=== PATIENT | female | born 1970 | race Caucasian/White ===

== ENCOUNTER 2019-03-14 09:45 | Observation (INO) ==
[2019-03-14] MEDS ORDERED: *HR* HYDROmorphone (PF) 1 MG/ML SYRINGE IVP ONE (10:28)
[2019-03-14] MEDS ORDERED: Ondansetron 4 MG/2 ML VIAL IVP ONE (10:28)
--- NOTE | 2019-03-14 10:28 | Emergency Department Note ---
Disposition Clinical Impression: Cholecystitis Disposition: Admitted As Inpatient Condition: Fair Referrals: Belia Moreira CNP [Primary Care Provider] - Forms: ED Satisfaction Letter, Work/School Release Time of Disposition: 12:17 General Adult HPI - General Chief complaint: ED Abdominal Pain Stated complaint: ABD Pain Time Seen by Provider: 03/14/19 09:54 Source: patient Mode of arrival: ambulatory Limitations: no limitations Nursing Notes Reviewed: Yes Vital Signs Reviewed: Yes - History of Present Illness HPI Narrative: Patient is a 48-year-old female with a past medical history of PCO S, myotonic dystrophy type II hysteroscopy presents to the emergency for evaluation of "gallbladder pain "patient states that her pain began this morning around 3:00 AM describes it as a sharp stabbing pain that is a 10/10 in the right upper quadrant. Associated with nausea but no emesis. Denies any diarrhea or urinary symptoms. States that she is seen for similar pain 2 weeks ago and had a gallbladder which she was told she has tones and she was given follow up with Dr. Forbes. She also recently underwent a colonoscopy and endoscopy 2 days ago. Pain Scale: 10 - Related Data Previous Rx's Medication Instructions Recorded Hyoscyamine SL [Levsin SL] 0.125 mg SL TID PRN #12 tab.subl 03/03/19 Allergies Allergy/AdvReac Type Severity Reaction Status Date / Time terbutaline [From Brethine] AdvReac Difficulty Verified 03/03/19 14:08 Breathing All systems ED: reviewed and negative except as stated. Review of Systems: As Per HPI Constitutional: Denies: fever, chills Cardiovascular: Denies: chest pain, palpitations, dyspnea on exertion Respiratory: Denies: cough, dyspnea, wheezes Gastrointestinal: Reports: abdominal pain, nausea. Denies: vomiting, diarrhea Genitourinary: Denies: urgency, dysuria, frequency Musculoskeletal: Denies: back pain, neck pain Integumentary: Denies: rash Past Medical History - Past Medical History Attestation: Yes The following information was validated with the patient. Medical history: Reports: hypertension Psychiatric history: Reports: no psych history - Social History Smoking Status: Current every day smoker Smokeless Tobacco Status: No Alcohol use: Reports: none Drug use: Reports: none Physical Exam - General Limitations: no limitations General appearance: alert, in no apparent distress - Head Head exam: atraumatic, normocephalic - Eye Eye exam: Present: normal appearance, PERRL, EOMI - ENT ENT exam: normal exam, normal oropharynx, mucous membranes moist - Neck Neck exam: Present: normal inspection, full ROM, trachea midline - Chest Chest inspection: Present: normal inspection, symmetric chest wall rise - Respiratory Respiratory exam: Present: normal lung sounds bilaterally. Absent: respiratory distress, wheezes, accessory muscle use - Cardiovascular Cardiovascular exam: Present: regular rate, normal rhythm, normal heart sounds, +S1, +S2 - Abdominal Exam Abdominal exam: Present: soft, tenderness. Absent: distention, guarding, rebound, rigidity Abdominal tenderness: Present: RUQ - Extremities Exam Extremities exam: Present: normal inspection, full ROM, normal capillary refill. Absent: tenderness, pedal edema - Back Exam Back exam: Present: normal inspection, full ROM. Absent: tenderness - Neurological Exam Neurological exam: Present: alert, oriented X3 - Psychiatric Psychiatric exam: Present: normal affect, normal mood - Skin Skin exam: Present: warm, dry, intact, normal color Course Course Narrative: Patient is a 48 of female presents for right upper quadrant pain with a prior evaluation showing gallstones. She was seen this morning at an outside hospital which she states she had lab work done and was treated for pain and discharged home. She has right upper quadrant tenderness on exam. She does appear to be in significant discomfort. We will treat her pain and her nausea and she will undergo a CAT scan as well as gallbladder ultrasound that she has not had a CAT scan in the past and she also had the recent procedure performed 2 days ago patient agrees with that plan. - Reevaluation(s) Reevaluation #1: I discussed the patient's case with the surgeon on-call and she is seeing the patient at bedside to discuss possible admission for cholecystectomy. I discus sed her ultrasound and CT scan findings as well. Patient's pain is improved after the medication from earlier. Time: 12:01 Reevaluation #2: Patient to be admitted to the surgical services for cholecystectomy. Vital Signs Temperature 97.7 F 03/14/19 09:51 Pulse Rate 81 03/14/19 09:51 Respiratory Rate 18 03/14/19 09:51 Blood Pressure 168/78 03/14/19 09:51 O2 Sat by Pulse Oximetry 100 03/14/19 09:51 Temperature 97.7 F 03/14/19 09:53 Pulse Rate 66 03/14/19 11:35 Respiratory Rate 16 03/14/19 11:35 Blood Pressure 130/63 03/14/19 11:35 O2 Sat by Pulse Oximetry 100 03/14/19 11:35 Oxygen Delivery Oxygen Delivery Room Air Medical Decision Making - Medical Records Medical records reviewed: Yes I reviewed the patient's medical records. - Lab Data Lab results reviewed: Yes I reviewed the patient's lab results. Result diagrams: 03/14/19 10:08 03/14/19 10:08 Lab Results 03/14/19 03/14/19 03/14/19 Range/Units 10:08 10:08 11:37 WBC 8.0 (4.3-11.1) K/mcL RBC 3.71 L (3.82-4.97) M/mcL Hgb 12.1 (11.5-15.4) g/dL Hct 36.0 (35.3-44.9) % MCV 97.0 (83.0-100.0) fL MCH 32.6 (28.0-33.3) pg MCHC 33.6 (31.6-35.5) g/dL RDW 11.7 (11.5-14.5) % Plt Count 190 (140-400) K/mcL MPV 10.1 (9.4-12.4) fL Immature Gran % 0.2 (0-4) % Seg Neutrophils % 84.8 % Lymphocytes % 10.7 % Monocytes % 3.6 % Eosinophils % 0.5 % Basophils % 0.2 % Neutrophils # 6.8 (1.6-8.9) K/mcL Lymphocytes # 0.9 (0.6-4.6) K/mcL Monocytes # 0.3 (0.0-1.3) K/mcL Eosinophils # 0.0 (0.0-0.6) K/mcL Basophils # 0.0 (0.0-0.2) K/mcL Sodium 138 (136-145) mEq/L Potassium 3.6 (3.5-5.1) mEq/L Chloride 104 (98-107) mEq/L Carbon Dioxide 26 (23-29) mEq/L BUN 8 (6-20) mg/dL Creatinine 0.36 L (0.60-1.20) mg/dL Est GFR ( Amer) > 60 (> 60) Est GFR (Non-Af Amer) > 60 (> 60) BUN/Creatinine Ratio 22 (6-26) Glucose 127 H (70-105) mg/dL Calculated Osmolality 286 (280-300) Calcium 8.9 (8.6-10.3) mg/dL Total Bilirubin 0.2 L (0.3-1.0) mg/dL Direct Bilirubin 0.1 (0.0-0.2) mg/dL Indirect Bilirubin 0.1 (0.0-1.2) mg/dL AST 20 (13-39) Units/L ALT 18 (7-52) Units/L Alkaline Phosphatase 84 (34-104) Units/L Serum Total Protein 6.7 (6.4-8.9) g/dL Albumin 4.1 (3.5-5.7) g/dL Globulin 2.6 (2.4-3.5) g/dL Albumin/Globulin Ratio 1.6 (1.1-2.2) Lipase 7 L (11-82) Units/L Urine Color Yellow (Yellow) Urine Clarity Clear (Clear) Urine pH 6.0 (5.0-8.0) pH Units Ur Specific [place] 1.013 (1.010-1.025) Urine Protein Negative (Neg-Trace) mg/dL Urine Glucose (UA) Normal (Normal) mg/dL Urine Ketones Negative (Negative) mg/dL Urine Blood Trace H (Negative) Urine Nitrite Negative (Negative) Urine Bilirubin Negative (Negative) Urine Urobilinogen Normal (Normal) mg/dL Ur Leukocyte Esterase Negative (Negative) Urine Microscopic RBC 0-3 (0-3) per hpf Urine Microscopic WBC 0-3 (0-3) per hpf Ur Squamous Epith Cells Many H (None-Few) per lpf Urine Bacteria Few (None-Few) per hpf Hyaline Casts None Seen (None-Few) per lpf Ur Culture Indicated? YES A (NO) - Radiology Data Radiology results reviewed: Yes I reviewed the patient's radiology results. Abdomen CT 03/14/19 10:20 IMPRESSION: 1. CT findings are suspicious for acute calculus cholecystitis. 2. No biliary duct dilation. The common bile duct is normal caliber. 3. Mild periportal adenopathy, likely reactive. D/ / Chrystal Sousa MD / Chrysatl Sousa MD Interpreting Provider: Chrystal Sousa MD
[2019-03-14] MEDS ORDERED: Hyoscyamine 0.5 MG/ML MLS IVP ONE (10:29)
[2019-03-14 10:31] LABS: Basophils % 0.2 %; Eosinophils % 0.5 %; Hemoglobin 12.1 g/dL (11.5-15.4); Immature Granulocytes % 0.2 % (0-4); Lymphocytes # 0.9 K/mcL (0.6-4.6); Lymphocytes % 10.7 %; Mean Corpuscular HGB Conc 33.6 g/dL (31.6-35.5); Mean Corpuscular Hemoglobin 32.6 pg (28.0-33.3); Mean Platelet Volume 10.1 fL (9.4-12.4); Monocytes # 0.3 K/mcL (0.0-1.3); Monocytes % 3.6 %; Neutrophils # 6.8 K/mcL (1.6-8.9); Platelet Count 190 K/mcL (140-400); Red Blood Count 3.71 M/mcL (3.82-4.97); Red Cell Distribution Width 11.7 % (11.5-14.5); Segmented Neutrophils % 84.8 %
--- NOTE | 2019-03-14 10:33 | Emergency Department Note ---
Disposition Clinical Impression: Cholecystitis Disposition: Admitted As Inpatient Condition: Fair Referrals: Belia Moreira, MATHEMATICAL TECHNICIAN [Primary Care Provider] - Forms: ED Satisfaction Letter, Work/School Release Time of Disposition: 12:20 General Adult HPI - General Chief complaint: ED Abdominal Pain Stated complaint: ABD Pain Time Seen by Provider: 03/14/19 09:54 Source: patient Limitations: no limitations - History of Present Illness Pain Scale: 10 - Related Data Previous Rx's Medication Instructions Recorded Hyoscyamine SL [Levsin SL] 0.125 mg SL TID PRN #12 tab.subl 03/03/19 Allergies Allergy/AdvReac Type Severity Reaction Status Date / Time terbutaline [From Brethine] AdvReac Difficulty Verified 03/03/19 14:08 Breathing Past Medical History - Past Medical History Medical history: Reports: hypertension Psychiatric history: Reports: no psych history - Social History Smoking Status: Current every day smoker Smokeless Tobacco Status: No Alcohol use: Reports: none Drug use: Reports: none Physical Exam - General Limitations: no limitations General appearance: alert, in no apparent distress Course Vital Signs Temperature 97.7 F 03/14/19 09:51 Pulse Rate 81 03/14/19 09:51 Respiratory Rate 18 03/14/19 09:51 Blood Pressure 168/78 03/14/19 09:51 O2 Sat by Pulse Oximetry 100 03/14/19 09:51 Temperature 97.7 F 03/14/19 09:53 Pulse Rate 66 03/14/19 11:35 Respiratory Rate 16 03/14/19 11:35 Blood Pressure 130/63 03/14/19 11:35 O2 Sat by Pulse Oximetry 100 03/14/19 11:35 Oxygen Delivery Oxygen Delivery Room Air Medical Decision Making - Lab Data Result diagrams: 03/14/19 10:08 03/14/19 10:08 Lab Results 03/14/19 03/14/19 03/14/19 Range/Units 10:08 10:08 11:37 WBC 8.0 (4.3-11.1) K/mcL RBC 3.71 L (3.82-4.97) M/mcL Hgb 12.1 (11.5-15.4) g/dL Hct 36.0 (35.3-44.9) % MCV 97.0 (83.0-100.0) fL MCH 32.6 (28.0-33.3) pg MCHC 33.6 (31.6-35.5) g/dL RDW 11.7 (11.5-14.5) % Plt Count 190 (140-400) K/mcL MPV 10.1 (9.4-12.4) fL Immature Gran % 0.2 (0-4) % Seg Neutrophils % 84.8 % Lymphocytes % 10.7 % Monocytes % 3.6 % Eosinophils % 0.5 % Basophils % 0.2 % Neutrophils # 6.8 (1.6-8.9) K/mcL Lymphocytes # 0.9 (0.6-4.6) K/mcL Monocytes # 0.3 (0.0-1.3) K/mcL Eosinophils # 0.0 (0.0-0.6) K/mcL Basophils # 0.0 (0.0-0.2) K/mcL Sodium 138 (136-145) mEq/L Potassium 3.6 (3.5-5.1) mEq/L Chloride 104 (98-107) mEq/L Carbon Dioxide 26 (23-29) mEq/L BUN 8 (6-20) mg/dL Creatinine 0.36 L (0.60-1.20) mg/dL Est GFR ( Amer) > 60 (> 60) Est GFR (Non-Af Amer) > 60 (> 60) BUN/Creatinine Ratio 22 (6-26) Glucose 127 H (70-105) mg/dL Calculated Osmolality 286 (280-300) Calcium 8.9 (8.6-10.3) mg/dL Total Bilirubin 0.2 L (0.3-1.0) mg/dL Direct Bilirubin 0.1 (0.0-0.2) mg/dL Indirect Bilirubin 0.1 (0.0-1.2) mg/dL AST 20 (13-39) Units/L ALT 18 (7-52) Units/L Alkaline Phosphatase 84 (34-104) Units/L Serum Total Protein 6.7 (6.4-8.9) g/dL Albumin 4.1 (3.5-5.7) g/dL Globulin 2.6 (2.4-3.5) g/dL Albumin/Globulin Ratio 1.6 (1.1-2.2) Lipase 7 L (11-82) Units/L Urine Color Yellow (Yellow) Urine Clarity Clear (Clear) Urine pH 6.0 (5.0-8.0) pH Units Ur Specific [place] 1.013 (1.010-1.025) Urine Protein Negative (Neg-Trace) mg/dL Urine Glucose (UA) Normal (Normal) mg/dL Urine Ketones Negative (Negative) mg/dL Urine Blood Trace H (Negative) Urine Nitrite Negative (Negative) Urine Bilirubin Negative (Negative) Urine Urobilinogen Normal (Normal) mg/dL Ur Leukocyte Esterase Negative (Negative) Urine Microscopic RBC 0-3 (0-3) per hpf Urine Microscopic WBC 0-3 (0-3) per hpf Ur Squamous Epith Cells Many H (None-Few) per lpf Urine Bacteria Few (None-Few) per hpf Hyaline Casts None Seen (None-Few) per lpf Ur Culture Indicated? YES A (NO) Attestation Statement - Attestation Attestation: I examined this patient and my medical decision-making was reviewed with the Resident Physician. I agree with the documented findings, disposition and treatment plan as described except to the extent set forth below. Patient to the ED with a chief complaint of abdominal pain. Patient having upper abdominal pain radiated to her back. Onset 3 AM today. Patient is been diagnosed with gallstones. She was seen here 2 weeks ago. She followed up with surgery who did an outpatient colonoscopy. This was done . Patient went to [facility] this morning and was provided pain relief and had some normal lab studies. On exam she appears uncomfortable. Upper abdominal tenderness without guarding. Plan. We will check CT scan as she is 2 days past colonoscopy. Pain control basic labs. CT shows possible cholecystitis. We will check ultrasound Ultrasound shows a thickened gallbladder wall. Discuss with general surgery. Patient will be admitted for cholecystectomy.
[2019-03-14 10:41] LABS: BUN/Creatinine Ratio 22 (6-26); Bilirubin,Direct 0.1 mg/dL (0.0-0.2); Bilirubin,Total 0.2 mg/dL (0.3-1.0); Blood Urea Nitrogen 8 mg/dL (6-20); Calcium 8.9 mg/dL (8.6-10.3); Carbon Dioxide 26 mEq/L (23-29); Chloride 104 mEq/L (98-107); Glucose 127 mg/dL (70-105); Osmolality,Calculated 286 (280-300); Potassium 3.6 mEq/L (3.5-5.1); Sodium 138 mEq/L (136-145); eGFR For Non-African Americans > 60 (> 60)
[2019-03-14 10:42] LABS: Alanine Aminotransferase 18 Units/L (7-52); Albumin 4.1 g/dL (3.5-5.7); Albumin/Globulin Ratio 1.6 (1.1-2.2); Alkaline Phosphatase 84 Units/L (34-104); Aspartate Amino Transferase 20 Units/L (13-39); Bilirubin,Indirect 0.1 mg/dL (0.0-1.2); Globulin 2.6 g/dL (2.4-3.5); Lipase 7 Units/L (11-82); Total Protein 6.7 g/dL (6.4-8.9)
[2019-03-14 12:02] LABS: Bilirubin,Urine Negative (Negative); Blood,Urine Trace (Negative); Clarity,Urine Clear (Clear); Color,Urine Yellow (Yellow); Glucose,Urine (UA) Normal (Normal); Ketones,Urine Negative (Negative); Leukocyte Esterase,Urine Negative (Negative); Nitrite,Urine Negative (Negative); Protein,Urine Negative (Neg-Trace); Specific Gravity,Urine 1.013 (1.010-1.025); Urobilinogen,Urine Normal (Normal)
[2019-03-14 12:05] LABS: Bacteria,Urine Few per hpf (None-Few); Hyaline Casts,Urine None Seen per lpf (None-Few); RBC,Urine 0-3 per hpf (0-3); Squamous Epithelial Cell,Urine Many per lpf (None-Few); WBC,Urine 0-3 per hpf (0-3)
[2019-03-14] MEDS ORDERED: Piperacillin/Tazobactam 3.375 GM in Water for inj. (sterile) 20 ML 20 ML IVP ONE (12:20)
[2019-03-14] MEDS ORDERED: ceFAZolin 2,000 MG in Water for inj. (sterile) 20 ML IVP ONE (12:36)
--- NOTE | 2019-03-14 12:39 | Acute Care Surgery H&P ---
Date of Encounter: 03/14/19 Time of Encounter: 12:40 Assessment and Plan (1) Acute cholecystitis due to biliary calculus Current Visit: Yes Status: Acute Pt diagnosis of acute cholecystitis and symptomatic cholelithiasis is discussed. Laparoscopic Cholecystectomy is recommended. Procedure for the surgery, risks and benefits are discussed in detail. Possible known complications for Laparoscopic Cholecystectomy are bleeding, infection, bile duct injury, bile leak, small intestine or stomach injury, stroke, DVT/PE, SC or . Pt understands these risks, which in this case are low. Pt wishes to proceed with surgery as soon as possible. Informed consent is obtained. Pt condition is stable. Surgery is scheduled. IV abx started. (2) HTN (hypertension) Current Visit: Yes Status: Acute Continue home meds post-op. Qualifiers: Hypertension type: essential hypertension Qualified Code(s): I10 - Essential (primary) hypertension (3) Myotonic muscular dystrophy Current Visit: Yes Status: Acute Continue home meds post-op. History of Present Illness Chief complaint: RUQ abdominal pain HPI: Ms. Harris is a 48 year old female Past Med Surg Social Fam HX - Past Medical History Medical history: hypertension Additional medical history: PCOS,myotonic dystrophy type 2, Psychiatric history: no psych history - Past Surgical History Additional surgical history: elvic laparoscopy,hysteroscopy - Social History Smoking Status: Current every day smoker Smokeless Tobacco Status: No Alcohol use: none Drug use: none - Family History Father Living Status: Age at : 62 Hx Family Cancer: Yes (colon/rectal) Medications and Allergies Gabapentin [Neurontin] 300 mg PO HS 03/14/19 [History] Losartan/Hydrochlorothiazide [Losartan-Hctz 100-12.5 mg Tab] 1 each PO DAILY 03/14/19 [History] Mexiletine [Mexitil] 150 mg PO HS 03/14/19 [History] amLODIPine [Norvasc] 25 mg PO DAILY 03/14/19 [History] Allergy/AdvReac Type Severity Reaction Status Date / Time terbutaline [From Brethine] AdvReac Difficulty Verified 03/03/19 14:08 Breathing Review of Systems All systems PM: The remainder of the systems were reviewed and are negative - Constitutional fatigue, weakness, no anorexia, no chills, no fever(s), no night sweats, no weight loss - EENT Nose, mouth and throat: dry mouth, no dizziness, no nasal congestion, no nasal discharge, no sinus pain, no sinus pressure, no sore throat - Cardiovascular no chest pain, no diaphoresis, no dyspnea, no edema - Respiratory no cough, no dyspnea, no wheezing - Gastrointestinal abdominal pain, belching, bloating, cramping, nausea, no constipation, no diarrhea, no vomiting - Genitourinary Genitourinary: no dysuria, no flank pain, no urinary frequency - Musculoskeletal back pain, joint swelling, limited range of motion, no neck pain - Integumentary no dry skin, no pruritus, no rash, no wounds, no jaundice - Neurological focal weakness, weakness, no confusion, no dizziness - Psychiatric no anxiety, no depression - Endocrine fatigue General Surgery Exam Initial Vital Signs Temp Pulse Resp BP Pulse Ox 97.7 F 81 18 168/78 100 03/14/19 09:51 03/14/19 09:51 03/14/19 09:51 03/14/19 09:51 03/14/19 09:51 - General physical appearance well developed, no distress, moderate pain. negative: jaundice - Eyes PERRL, normal ocular movement. negative: icteric - ENT no congestion, dry mucosa. negative: nasal discharge - Neck no masses, no lymphadectomy, no venous distension - Respiratory normal respiratory effort, clear to auscultation - Cardiovascular Cardiovascular exam: Present: RRR. Absent: murmurs - Abdomen Abdomen general surgery: Present: bowel sounds present, soft, tender. Absent: guarding Abdominal Tenderness: Present: RUQ - Genitourinary Present: normal external genitalia - Integumentary Integumentary general surgery: Present: warm and dry - Neurologic Present: CN 2-12 grossly intact, normal coordination - Musculoskeletal Present: normal gait, normal posture - Psychiatric Psychiatric general surgery: Present: A&Ox3, appropriate Results - Labs 03/14/19 10:08 03/14/19 10:08 Abnormal lab results RBC 3.71 M/mcL (3.82-4.97) L 03/14/19 10:08 0.36 mg/dL (0.60-1.20) L 03/14/19 10:08 Glucose 127 mg/dL (70-105) H 03/14/19 10:08 0.2 mg/dL (0.3-1.0) L 03/14/19 10:08 7 Units/L (11-82) L 03/14/19 10:08 Trace (Negative) H 03/14/19 11:37 Ur Squamous Epith Cells Many per lpf (None-Few) H 03/14/19 11:37 Ur Culture Indicated? YES (NO) A 03/14/19 11:37 Diabetes panel 03/14/19 Range/Units 10:08 Sodium 138 (136-145) mEq/L Potassium 3.6 (3.5-5.1) mEq/L Chloride 104 (98-107) mEq/L Carbon Dioxide 26 (23-29) mEq/L BUN 8 (6-20) mg/dL Creatinine 0.36 L (0.60-1.20) mg/dL Glucose 127 H (70-105) mg/dL Calcium 8.9 (8.6-10.3) mg/dL AST 20 (13-39) Units/L ALT 18 (7-52) Units/L Alkaline Phosphatase 84 (34-104) Units/L Albumin 4.1 (3.5-5.7) g/dL Calcium panel 03/14/19 Range/Units 10:08 Calcium 8.9 (8.6-10.3) mg/dL Albumin 4.1 (3.5-5.7) g/dL Pituitary panel 03/14/19 Range/Units 10:08 Sodium 138 (136-145) mEq/L Potassium 3.6 (3.5-5.1) mEq/L Chloride 104 (98-107) mEq/L Carbon Dioxide 26 (23-29) mEq/L BUN 8 (6-20) mg/dL Creatinine 0.36 L (0.60-1.20) mg/dL Glucose 127 H (70-105) mg/dL Calcium 8.9 (8.6-10.3) mg/dL Adrenal panel 03/14/19 Range/Units 10:08 Sodium 138 (136-145) mEq/L Potassium 3.6 (3.5-5.1) mEq/L Chloride 104 (98-107) mEq/L Carbon Dioxide 26 (23-29) mEq/L BUN 8 (6-20) mg/dL Creatinine 0.36 L (0.60-1.20) mg/dL Glucose 127 H (70-105) mg/dL Calcium 8.9 (8.6-10.3) mg/dL Total Bilirubin 0.2 L (0.3-1.0) mg/dL AST 20 (13-39) Units/L ALT 18 (7-52) Units/L Alkaline Phosphatase 84 (34-104) Units/L Albumin 4.1 (3.5-5.7) g/dL All other labs normal. - Imaging CT scan - abdomen: image reviewed (CT findings are suspicious for acute calculus cholecystitis.) CT scan - pelvis: image reviewed US - abdomen: image reviewed (GB wall thickening and cholelithiasis)
[2019-03-14] MEDS ORDERED: *HR* Midazolam HCl 2 MG/2 ML VIAL ONE (14:52)
[2019-03-14] MEDS ORDERED: Albuterol 2.5 MG/3 ML NEBULIZER ONE (15:08)
[2019-03-14] MEDS ORDERED: Ringers Solution, Lactated 1,000 ML IVC SCH (15:20)
--- NOTE | 2019-03-14 15:54 | Anesthesia Evaluation PreOp ---
Date of Encounter: 03/14/19 Time of Encounter: 15:52 - Past History Planned Operation: Laparoscopic Cholecystectomy Cardiac History: HTN Pulmonary History: Smoker, Snore MAINTENANCE MECHANIC ENGINE History: Other (myotonic dystrophy) Other Medical History: GERD Anesthesia History: No Prior Anesthetic Complications, Past Anesthesia Test: Negative (03/14/2019) Alcohol Use: none Drug use: none Medications and Allergies Gabapentin [Neurontin] 300 mg PO HS 03/14/19 [History] Losartan/Hydrochlorothiazide [Losartan-Hctz 100-12.5 mg Tab] 1 each PO DAILY 03/14/19 [History] Mexiletine [Mexitil] 150 mg PO HS 03/14/19 [History] amLODIPine [Norvasc] 25 mg PO DAILY 03/14/19 [History] Allergy/AdvReac Type Severity Reaction Status Date / Time terbutaline [From Brethine] AdvReac Difficulty Verified 03/03/19 14:08 Breathing - Meds/Allergy Pre-op Review Medications Reviewed: Yes Allergies Reviewed: Yes Beta Blockers on Current Med List: No Anesthesia Results - Labs 03/14/19 10:08 03/14/19 10:08 Laboratory Tests 03/14/19 03/14/19 03/14/19 10:08 10:08 11:37 WBC 8.0 Hgb 12.1 Hct 36.0 Plt Count 190 Sodium 138 Potassium 3.6 BUN 8 Creatinine 0.36 L Urine Test Negative - Imaging EKG: report reviewed (03/03/2019 Sinus rhythm Left axis deviation Borderline T a bnormalities, anterior leads, consider ischemia, correlate clinically) Anesthesia Exam Vital Signs/O2 Sat, Most Current Temp Pulse Resp BP Pulse Ox 98.3 F 59 18 121/73 98 03/14/19 14:01 03/14/19 14:01 03/14/19 14:03/14/19 14:03/14/19 14:01 Height: 5'4''/1.63m Weight: 172 lbs/78 kg NPO (# of Hours): 8 Pain Scale: 0 Pain Scale Used: Numeric (1 - 10) - HEENT Pupil (Motor): EOMI Mallampati: II Teeth: Edentulous Denture Type: Upper: Complete, Lower: Complete Oral Opening: Greater than 3 - MAINTENANCE MECHANIC ENGINE LOC: Oriented MAINTENANCE MECHANIC ENGINE Motor: Normal RUE, Normal LUE, Normal RLE, Normal LLE, Normal Face MAINTENANCE MECHANIC ENGINE Sensory: Normal: RUE, LUE, RLE, LLE, Face - Cardiac Rhythm: Regular Murmur: Systolic - Pulmonary Breath Sounds: bilateral Clear Respiratory Effort: Symmetrical Anesthesia Assess/Plan ASA Score: 3 Level of consciousness: Cooperative, Oriented, Tranquil Anesthetic Plan: General Monitoring Plan: Standard Monitors Recovery Plan: PACU
[2019-03-14] MEDS ORDERED: Acetaminophen IV 1,000 MG/100 ML INFUS..BTL ONE (15:59)
[2019-03-14] MEDS ORDERED: *HR* Cisatracurium 10 MG/5 ML VIAL IV ONE ×2 (15:59→16:57)
[2019-03-14] MEDS ORDERED: *HR* HYDROmorphone (PF) 1 MG/ML SYRINGE IVP PRN (16:19)
[2019-03-14] MEDS ORDERED: *HR* FentaNYL (PF) 100 MCG/2 ML VIAL ONE (16:20)
[2019-03-14] MEDS ORDERED: *HR* Propofol 200 MG/20 ML VIAL IVP ONE (16:21)
[2019-03-14] MEDS ORDERED: Lidocaine -MPF 4% 5 ML AMPUL ONE (16:22)
[2019-03-14] MEDS ORDERED: *HR* PHENYLEPHRINE 1,000 MCG/10 ML SYRINGE IVP ONE (16:56)
[2019-03-14] MEDS ORDERED: Acetaminophen IV 1,000 MG/100 ML INFUS..BTL IVPB ONE ×2 (17:10→18:44)
--- NOTE | 2019-03-14 18:01 | Operative Note ---
Date of procedure: 03/14/19 Pre-op diagnosis: Acute cholecystitis with cholelithiasis Post-op diagnosis: same Procedure: Laparoscopic cholecystectomy Complications: None Anesthesia: GETA Surgeon: Kashif Salgado Was there an web assistant present: No Estimated blood loss (cc): 20 Specimen: Gallbladder Condition: stable Disposition: PACU Procedure in Detail: This 48 year-old female was taken to the operating room and placed in the supine position. The anterior abdominal wall is prepped and draped in the usual sterile fashion. A 1-2 cm curvilinear incision is made in the infraumbilical area and subcutaneous tissue was dissected down to anterior rectus fascia. Fascia is grasped with a Malia clamp, stay sutures were placed in the fascia is divided. Posterior rectus fascia and peritoneum were elevated and divided in the same manner. A Tate port is inserted. Under direct visualization after the injection of 0.5% Marcaine the x3 5 mm ports are inserted in the right subcostal space under direct visualization. Exploration of the intraabdominal cavity reveals an abnormal gallbladder. The patient is placed in reverse Trendelenburg position and rotated to the left. The gallbladder is grasped and retracted in cephalad direction. It is also grasped and retracted in the lateral direction. The cystic duct was carefully identified circumferentially dissected doubly clipped and divided between clips. The cystic artery is carefully identified and circumferentially dissected and divided between clips. The gallbladder is dissected off the liver bed using electrocautery. Hemostasis was perfected using electrocautery. The gallbladder is removed from the intra- abdominal cavity using an Endo Catch bag. Copious irrigation is carried out in the intra-abdominal cavity, Adams's pouch and the gallbladder fossa. The pneumoperitoneum was allowed to escape under direct visualization. The ports were removed also under direct visualization. The fascia at the infraumbilical incision is closed using 0 Vicryl sutures. All skin incisions are closed using 4-0 Monocryl subcuticular stitches. Steri-Strips are placed. Sterile dressing is placed. Patient tolerated procedure well was taken to the PACU in good condition.
--- NOTE | 2019-03-14 18:33 | Anesthesia Evaluation Post Op ---
Date of Encounter: 03/14/19 Time of Encounter: 18:32 - Vital Signs Vital Signs: Vital Signs/O2 Sat, Most Current Temp Pulse Resp BP Pulse Ox 98.7 F 62 16 138/67 97 03/14/19 18:08 03/14/19 18:28 03/14/19 18:28 03/14/19 18:28 03/14/19 18:28 - Lungs Lungs: Clear Ascult./Percussion - Airway Airway: Non-obstructed - Cardiovascular Regular Rate - Mental Status Mental Status: Asleep with brisk response to light stimulation - Pain Pain Scale: 2 Pain Scale used: Numeric (1 - 10) - Nausea Vomiting Nausea Vomiting: Not Present - Hydration Hydration: Ice chips, Has not voided - Discharge PostOp Status: Transfer Patient to floor
[2019-03-14] MEDS: *HR* OxyCODONE/APAP 5/325 TABLET PO PRN (19:20)
[2019-03-14] MEDS ORDERED: Gabapentin 300 MG CAPSULE PO SCH (21:00)
[2019-03-15] MEDS: *HR* OxyCODONE/APAP 5/325 TABLET PO PRN ×3 (01:22→14:11)
[2019-03-15] MEDS ORDERED: Losartan/HCTZ 50-12.5 TABLET PO SCH (09:00)
[2019-03-15] MEDS ORDERED: amLODIPine 5 MG TABLET PO SCH (09:00)
[2019-03-15 14:57] VITALS: BP 120/44
--- NOTE | 2019-03-15 16:05 | Discharge Summary ---
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 negative: jaundice - Eyes PERRL, normal ocular movement. negative: icteric - ENT normal mucosa - Neck no venous distension - Respiratory normal respiratory effort, clear to auscultation - Cardiovascular Cardiovascular exam: Present: RRR. Absent: murmurs - Abdomen Abdomen general surgery: Present: bowel sounds present, soft, non tender - Incision Incision: Present: clean and dry, intact - Integumentary Integumentary general surgery: Present: warm and dry - Neurologic Present: CN 2-12 grossly intact - Musculoskeletal Present: normal gait, normal posture - Psychiatric Psychiatric general surgery: Present: A&Ox3, appropriate - Hospital Course Hospital course: Ms. Harris is a 48 year old female who presented to [facility] with symptomatic cholelithiasis. Pt underwent lap chelsea. She tolerated surgery well and had a noncomplicated post-op course. DC home in good condition. - Time Spent with Patient Total time spent providing and/or coordinating discharge services: Less than 30 minutes Specific discharge activities: No heavy lifting >20 lbs. No driving while on pain meds. May shower. F/U with Acute care surgery in 2 weeks. - Discharge Medications Prescriptions: New OxyCODONE/APAP 5/325 [Percocet 5/325 MG] 1 each PO Q4HR PRN 7 Days #28 tablet PRN Reason: Pain Continued amLODIPine [Norvasc] 25 mg PO DAILY Mexiletine [Mexitil] 150 mg PO HS Losartan/Hydrochlorothiazide [Losartan-Hctz 100-12.5 mg Tab] 1 each PO DAILY Gabapentin [Neurontin] 300 mg PO HS Home Medications: Gabapentin [Neurontin] 300 mg PO HS 03/14/19 [History] Losartan/Hydrochlorothiazide [Losartan-Hctz 100-12.5 mg Tab] 1 each PO DAILY 03/14/19 [History] Mexiletine [Mexitil] 150 mg PO HS 03/14/19 [History] amLODIPine [Norvasc] 25 mg PO DAILY 03/14/19 [History] OxyCODONE/APAP 5/325 [Percocet 5/325 MG] 1 each PO Q4HR PRN 7 Days #28 tablet 03/15/19 [Rx] Allergies/Adverse Reactions: Allergy/AdvReac Type Severity Reaction Status Date / Time terbutaline [From Brethine] AdvReac Difficulty Verified 03/03/19 14:08 Breathing Date of admission: 03/14/19 12:26 Primary care physician: Belia Moreira CNP Consults: 03/14/19 14:03 Consult to Nutrition [CONS] Routine Comment: Consulting Provider: NUTRITION Reason for Dietary Consult: MST Score Consult to Pastoral Services [CONS] Routine Comment: Discharging clinician: Kashif Salgado Anticipated date of discharge: 03/15/19 - Impressions ITS Impressions Gallbladder Ultrasound 03/14/19 10:05 IMPRESSION: 1. Cholelithiasis. Diffuse gallbladder wall thickening may be related to cholecystitis, but no additional secondary sonographic findings of cholecystitis are identified. Consider further evaluation with a nuclear medicine hepatobiliary scan if clinical findings are equivocal. 2. Mild hepatic steatosis. D/ / Gabriele Cordon MD / Gabriele Cordon MD Interpreting Provider: Gabriele Cordon MD Abdomen CT 03/14/19 10:20 IMPRESSION: 1. CT findings are suspicious for acute calculus cholecystitis. 2. No biliary duct dilation. The common bile duct is normal in caliber. 3. Mild periportal adenopathy, likely reactive. D/ / 03/14/2019 11:48:25 Chrystal Sousa MD / solitario Interpreting Provider: Chrystal Sousa MD - Patient Status Disposition: Home, Self-Care Condition: Good Functional capacity at discharge: independent ambulation Overall status at discharge: patient is progressing back to baseline - Discharge Instructions Instructions: Laparoscopic Cholecystectomy (DC) Follow Up With: Kashif Chan [Partnered Physician] - 03/31/19 8:30 am Belia Moreira CNP [Primary Care Provider] - Additional Instructions: General Surgical Discharge Instructions 1. No pushing, pulling, or lifting greater than 15 lbs for 2-4 weeks (depending upon procedure). 2. You may shower beginning today, but no tub baths, soaking, or swimming for 2 weeks. 3. You may resume driving when you are off narcotics and are safe to react in a car. 4. Take ibuprofen every 8 hours for discomfort. If this does not relieve discomfort, you may take the as needed Percocet. Take narcotics as directed. Do not take more narcotics then directed and do not share your narcotics with any other person. Do not drink alcohol while on narcotics. 5. Take stool softeners (Colace) or a water based laxative (Miralax) while taking narcotics. You may hold for loose stools. 6. Report any fevers greater than 100.5F, increase abdominal discomfort, drainage that looks like pus, increased redness or pain at the surgical site, or any vomiting. 7. Report any pain in the calves, shortness of breath, or rapid heartbeat. 8. Follow-up in the office as directed. 9. If you were prescribed antibiotics, do not stop them without talking to your provider. - Diet and Activity Activity: other (No heavy lifting >20 lbs. No driving while on pain meds. May shower. F/U with Acute care surgery in 2 weeks.)
== END 2019-03-15 17:09 | disposition home or self-care (01) ==
LOC: EMEROOARM 09:45 → 3NENU 09:45
PROVIDERS: ADMIT Surgery; ATTEND Surgery